=== PATIENT | male | born 1975 | race Caucasian/White ===

== ENCOUNTER → 2019-03-18 08:41 | Outpatient (BNVA) | payer BC, SELFPAY | PROVIDERS: Family Provider Nurse Practitioner; PCP Nurse Practitioner; Visit Provider Nurse Practitioner Family | DX: E87.6 Hypokalemia (principal) | CPT/HCPCS: 36415; 80048 ==

== ENCOUNTER → 2019-03-31 09:21 | Outpatient (BNVA) | payer BC, SELFPAY | PROVIDERS: Family Provider Nurse Practitioner; PCP Nurse Practitioner; Visit Provider Nurse Practitioner Family | DX: E87.6 Hypokalemia (principal); R73.9 Hyperglycemia, unspecified | CPT/HCPCS: 83036; 84132 ==

== ENCOUNTER → 2019-05-10 10:01 | Outpatient (BNVA) | payer BC, SELFPAY | PROVIDERS: Family Provider Nurse Practitioner; PCP Nurse Practitioner; Visit Provider Nurse Practitioner Family | DX: I10 Essential (primary) hypertension (principal); E87.6 Hypokalemia; J06.9 Acute upper respiratory infection, unspecified | CPT/HCPCS: 80053 ==

== ENCOUNTER → 2019-08-19 08:33 | Outpatient (BNVA) | payer BC, SELFPAY | PROVIDERS: Family Provider Nurse Practitioner; PCP Nurse Practitioner; Visit Provider Nurse Practitioner Family | DX: I10 Essential (primary) hypertension (principal); E78.5 Hyperlipidemia, unspecified; E87.6 Hypokalemia; L65.9 Nonscarring hair loss, unspecified; F41.9 Anxiety disorder, unspecified | CPT/HCPCS: 80053; 80061; 81003; 84443; 85025 ==

== ENCOUNTER → 2019-11-15 09:32 | Outpatient (BNVA) | payer BC, SELFPAY | PROVIDERS: Family Provider Nurse Practitioner; PCP Nurse Practitioner; Visit Provider Nurse Practitioner Family | DX: I10 Essential (primary) hypertension (principal); E78.5 Hyperlipidemia, unspecified | CPT/HCPCS: 80053; 80061; 84443; 85025 ==

== ENCOUNTER → 2020-05-15 08:33 | Outpatient (BNVA) | payer OTHER, SELFPAY | PROVIDERS: Family Provider Nurse Practitioner; PCP Nurse Practitioner; Visit Provider Nurse Practitioner Family | DX: E78.5 Hyperlipidemia, unspecified (principal); I10 Essential (primary) hypertension; F41.9 Anxiety disorder, unspecified; L65.9 Nonscarring hair loss, unspecified; E87.6 Hypokalemia | CPT/HCPCS: 80053; 80061; 84443; 85025 ==

== ENCOUNTER → 2020-09-11 16:01 | Outpatient (BNVA) | payer OTHER, SELFPAY | PROVIDERS: Family Provider Nurse Practitioner; PCP Nurse Practitioner; Visit Provider Nurse Practitioner Family | DX: I10 Essential (primary) hypertension (principal) | CPT/HCPCS: 80053 ==

== ENCOUNTER → 2020-09-24 09:20 | Outpatient (BNVA) | payer OTHER, SELFPAY | PROVIDERS: Family Provider Nurse Practitioner; PCP Nurse Practitioner; Visit Provider Nurse Practitioner Family | DX: E87.6 Hypokalemia (principal) | CPT/HCPCS: 80048 ==

== ENCOUNTER → 2020-10-31 10:26 | Outpatient (BNVA) | payer OTHER, SELFPAY | PROVIDERS: Family Provider Nurse Practitioner; PCP Nurse Practitioner; Visit Provider Nurse Practitioner Family | DX: I10 Essential (primary) hypertension (principal); E78.5 Hyperlipidemia, unspecified; K21.9 Gastro-esophageal reflux disease without esophagitis; E87.6 Hypokalemia; L65.9 Nonscarring hair loss, unspecified; F41.9 Anxiety disorder, unspecified | CPT/HCPCS: 80053; 80061; 84443; 85025 ==

== ENCOUNTER → 2021-01-23 10:12 | Outpatient (BNVA) | payer OTHER, SELFPAY | PROVIDERS: Family Provider Nurse Practitioner; PCP Nurse Practitioner; Visit Provider Nurse Practitioner Family | DX: Z12.5 Encounter for screening for malignant neoplasm of prostate (principal); I10 Essential (primary) hypertension; E78.5 Hyperlipidemia, unspecified; L65.9 Nonscarring hair loss, unspecified; K21.9 Gastro-esophageal reflux disease without esophagitis; E87.6 Hypokalemia; F41.9 Anxiety disorder, unspecified; R73.9 Hyperglycemia, unspecified | CPT/HCPCS: 80053; 80061; 83036; 84443; 85025; G0103 ==

== ENCOUNTER → 2021-05-14 11:30 | Outpatient (BNVA) | payer OTHER, SELFPAY | PROVIDERS: Family Provider Nurse Practitioner; PCP Nurse Practitioner; Visit Provider Nurse Practitioner Family | DX: R73.9 Hyperglycemia, unspecified (principal); R42 Dizziness and giddiness; I10 Essential (primary) hypertension; F41.9 Anxiety disorder, unspecified; H65.193 Other acute nonsuppurative otitis media, bilateral | CPT/HCPCS: 80053; 80061; 81000; 83036; 84443 ==

== ENCOUNTER → 2021-08-26 11:54 | Outpatient (BNVA) | payer OTHER, SELFPAY | PROVIDERS: Family Provider Nurse Practitioner; PCP Nurse Practitioner; Visit Provider Nurse Practitioner Family | DX: I10 Essential (primary) hypertension (principal); E87.6 Hypokalemia; K21.9 Gastro-esophageal reflux disease without esophagitis; L65.9 Nonscarring hair loss, unspecified; F41.9 Anxiety disorder, unspecified; E78.5 Hyperlipidemia, unspecified; G47.10 Hypersomnia, unspecified | CPT/HCPCS: 80053; 80061; 84443; 85025 ==

== ENCOUNTER → 2021-09-09 08:58 | Outpatient (BNVA) | payer OTHER, SELFPAY | PROVIDERS: Family Provider Nurse Practitioner; PCP Nurse Practitioner; Visit Provider Nurse Practitioner Family | DX: E87.6 Hypokalemia (principal) | CPT/HCPCS: 80053 ==

== ENCOUNTER → 2022-03-11 10:39 | Outpatient (BNVA) | payer OTHER, SELFPAY | PROVIDERS: Family Provider Nurse Practitioner; PCP Nurse Practitioner; Visit Provider Nurse Practitioner Family | DX: I10 Essential (primary) hypertension (principal); F41.9 Anxiety disorder, unspecified; L65.9 Nonscarring hair loss, unspecified; E87.6 Hypokalemia; K21.9 Gastro-esophageal reflux disease without esophagitis; G89.29 Other chronic pain; M79.672 Pain in left foot; G47.10 Hypersomnia, unspecified; E78.5 Hyperlipidemia, unspecified | CPT/HCPCS: 73630; 80053; 80061; 84443; 85025 ==

== ENCOUNTER → 2022-07-21 08:40 | Outpatient (BNVA) | payer OTHER, SELFPAY | PROVIDERS: Family Provider Nurse Practitioner; PCP Nurse Practitioner; Visit Provider Nurse Practitioner Family | DX: R05.9 Cough, unspecified (principal) | CPT/HCPCS: 87426 ==

== ENCOUNTER → 2022-08-25 08:55 | Outpatient (BNVA) | payer OTHER, SELFPAY | PROVIDERS: Family Provider Nurse Practitioner; PCP Nurse Practitioner; Visit Provider Nurse Practitioner Family | DX: E87.6 Hypokalemia (principal); K21.9 Gastro-esophageal reflux disease without esophagitis; I10 Essential (primary) hypertension; F41.9 Anxiety disorder, unspecified; L65.9 Nonscarring hair loss, unspecified; Z12.5 Encounter for screening for malignant neoplasm of prostate; E78.5 Hyperlipidemia, unspecified; L73.9 Follicular disorder, unspecified; B37.2 Candidiasis of skin and nail | CPT/HCPCS: 80053; 80061; 84443; 85025; G0103 ==

== ENCOUNTER → 2023-02-16 08:41 | Outpatient (BNVA) | payer OTHER, SELFPAY | PROVIDERS: Family Provider Nurse Practitioner; PCP Nurse Practitioner; Visit Provider Nurse Practitioner Family | DX: I10 Essential (primary) hypertension (principal) | CPT/HCPCS: 80053; 80061; 84443; 85025 ==

== ENCOUNTER → 2023-08-11 08:52 | Outpatient (BNVA) | payer OTHER, SELFPAY | PROVIDERS: Family Provider Nurse Practitioner; PCP Nurse Practitioner; Visit Provider Nurse Practitioner Family | DX: I10 Essential (primary) hypertension (principal); E78.5 Hyperlipidemia, unspecified | CPT/HCPCS: 80053; 80061; 83036; 84443; 85025 ==

== ENCOUNTER → 2024-01-28 08:41 | Outpatient (BNVA) | payer OTHER, SELFPAY | PROVIDERS: Family Provider Nurse Practitioner; PCP Nurse Practitioner Family; Visit Provider Nurse Practitioner Family | DX: Z12.5 Encounter for screening for malignant neoplasm of prostate (principal); I10 Essential (primary) hypertension; E78.5 Hyperlipidemia, unspecified | CPT/HCPCS: 80053; 80061; 84443; 85025; G0103 ==

== ENCOUNTER → 2025-01-11 13:37 | Outpatient (BNVA) | payer OTHER, SELFPAY | PROVIDERS: Family Provider Nurse Practitioner; PCP Nurse Practitioner Family; Visit Provider Nurse Practitioner Family | DX: I10 Essential (primary) hypertension (principal); E78.5 Hyperlipidemia, unspecified; F41.9 Anxiety disorder, unspecified; E87.6 Hypokalemia; G25.81 Restless legs syndrome; L65.9 Nonscarring hair loss, unspecified; Z12.5 Encounter for screening for malignant neoplasm of prostate | CPT/HCPCS: 80053; 80061; 82306; 82607; 83036; 84443; 85025; G0103 ==

== ENCOUNTER → 2025-02-03 10:06 | Outpatient (BNVA) | payer OTHER, SELFPAY | PROVIDERS: Family Provider Nurse Practitioner; PCP Nurse Practitioner Family; Visit Provider Nurse Practitioner Family | DX: E87.6 Hypokalemia (principal) | CPT/HCPCS: 80053 ==

== ENCOUNTER 2025-02-17 18:35 | Emergency (ER) | payer OTHER, SELFPAY ==
--- OUTSIDE RECORDS SUMMARY | 2025-02-17 18:48 | XMS_ITS | Clinical Summary ---
Author Organization [facility] Address [address] [facility] [address] [place] [address] Care Team Providers Care Ski Edge Painter Name Role Phone Augustine Hollingsworth MD Primary Care Provider [phone] Allergies Active Allergy Reactions Criticality Noted Date Comments Atorvastatin Muscle Pain Low 07/03/2016 Azithromycin Dizziness Low 07/03/2016 Medications famotidine (PEPCID) 20 mg tablet Take 20 mg by mouth 2 times daily. Active fluticasone (FLONASE) 50 mcg/spray [place], SuspensionIndicati ons:Seasonal allergic rhinitis due to other allergic trigger Administer 2 Sprays in each nostril daily. Active Fish Oil-[place]-3 Fatty Acids 360-1,200 mg CapsuleIndications :Mixed hyperlipidemia Take 1 Capsule by mouth 2 times daily. Active multivitamin,tx-ir on-ca-min (THERA-M) 27-0.4 mg Tablet Take 1 Tablet by mouth daily. Active albuterol HFA 90 mcg inhalerIndications :Mild intermittent asthma without complication Take 2 Puffs by inhalation every 6 hours as needed for Shortness of Breath. 8.5 Gram 2 7 Active lisinopril (PRINIVIL) 40 mg tabletIndications: Benign hypertension TAKE ONE TABLET BY MOUTH ONCE DAILY *LAST REFILL TILL APPT* 30 Tablet 8 Active chlorthalidone (HYGROTON) 50 mg tablet TAKE ONE TABLET BY MOUTH ONCE DAILY 30 Tablet 8 Active lisinopril (PRINIVIL) 40 mg tabletIndications: Benign hypertension TAKE ONE TABLET BY MOUTH ONCE DAILY *LAST REFILL TILL APPT* 30 Tablet 8 Active Active Problems Problem Noted Date Diagnosed Date Hyperglycemia 08/21/2016 Asthma 07/03/2016 Benign hypertension 07/03/2016 Seasonal allergic rhinitis 07/03/2016 Hyperlipidemia 07/03/2016 Severe obesity (BMI 35.0-39.9) with comorbidity 07/03/2016 Family History Medical History Relation Name Comments Heart Disease Father Hypertension Father Hypertension Mother Relation Name Status Comments Father Mother Alive Social History Tobacco Use Types Packs/Day Years Used Date Smoking Tobacco: Never Smokeless Tobacco: Never Alcohol Use Standard Drinks/Week Comments No 0 (1 standard drink = 0.6 oz pur e alcohol) Sex and Gender Information Value Date Recorded Sex Assigned at Not on file 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 Gender Identity Not on file Sexual Orientation Not on file Last Filed Vital Signs Vital Sign Reading Time Taken Comments Blood Pressure 140/82 08/21/2016 11:11 AM CDT Pulse 73 08/21/2016 11:11 AM CDT Temperature 36.8 C (98.2 F) 08/21/2016 11:11 AM CDT Respiratory Rate 16 08/21/2016 11:11 AM CDT Oxygen Saturation 97% 08/21/2016 11:11 AM CDT Inhaled Oxygen Concentration - - Weight 116.1 kg (256 lb) 08/21/2016 11:11 AM CDT Height 175.3 cm (5' 9 ) 08/21/2016 11:11 AM CDT Body Mass Index 37.8 08/21/2016 11:11 AM CDT Plan of Treatment Health Maintenance Due Date Last Done Comments DTAP/TDAP/TD VACCINES (1 - Tdap) 1992 HEPATITIS B VACCINES (1 of 3 - 19+ 3-dose series) 11/1992 COLORECTAL SCREENING 2018 Colorectal Cancer Screening 2018 FIT-DNA Q 3 years 2018 FIT/FOBT Q 1 year 2018 Flex Sig/CT Colonography Q 5 years 2018 ZOSTER VACCINE (1 of 2) 06/23/2023 INFLUENZA VACCINE (#1) 2024 Care Teams Ski Edge Painter Relationship Specialty Start Date End Date Augustine Hollingsworth MD [address] [phone] PCP - General Family Practice 01/08/17
--- OUTSIDE RECORDS SUMMARY | 2025-02-17 18:48 | XMS_ITS | Encounter Summary ---
Author Organization [facility] Address [address] [place] [address] Care Team Providers Care Boat Outfitting Supervisor Name Role Phone Augustine Hollingsworth MD Primary Care Provider [phone] [phone] Encounter Details Date Type Department Care Team (Late st Contact Info) Description 07/10/[address] [facility] 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 Gender Identity Not on file Sexual Orientation Not on file documented as of this encounter Plan of Treatment Not on file documented as of this encounter Procedures Procedure Name Priority Date/Time Associated Diagnosis Comments LIPID PANEL Routine 07/10/2004 12:12 PM CDT documented in this encounter Results * (ABNORMAL) LIPID PANEL (07/10/2004 12:12 PM CDT) CHOLESTEROL 239(H) 75 - 200 mg/dL INTERFACE SYSTEM TRIGLYCERIDE 143 0 - 168 mg/dL INTERFACE SYSTEM GLUCOSE 98 70 - 110 mg/dL INTERFACE SYSTEM CALCULATED TOTAL CHOLESTEROL TO HDL RATIO 4.51 3.43 - 4.97 INTERFACE SYSTEM HDL 53 40 - 60 mg/dL INTERFACE SYSTEM LDL CALCULATED 157(H) 0 - 130 mg/dL INTERFACE SYSTEM 07/10/2004 12:1 2 PM CDT us Perez Guillory MD CHEMISTRY ORDERABLES Final Res ult INTERFACE SYSTEM Refer to clinic/hospital department documented in this encounter Visit Diagnoses Not on filedocumented in this encounter Care Teams Boat Outfitting Supervisor Relationship Specialty Start Date End Date Augustine Hollingsworth MD [address] [facility] [address] [place] [address] PCP - General Family Practice 01/08/17 documented as of this encounter
--- OUTSIDE RECORDS SUMMARY | 2025-02-17 18:48 | XMS_ITS | Clinical Summary ---
Author Organization [facility] Address [address] Fleix: Epic Prelude ADT [place]EVIN BENÍTEZ [address] Care Team Providers Care Electrical And Radio Mock Up Mechanic Name Role Phone Augustine Hollingsworth MD Primary Care Provider [phone] [phone] Allergies Active Allergy Reactions Criticality Noted Date Comments Atorvastatin Muscle Pain Low 07/03/2016 Azithromycin Dizziness Low 07/03/2016 Medications lisinopriL (PRINIVIL) 40 mg tabletIndications: Benign hypertension TAKE ONE TABLET BY MOUTH ONCE DAILY *LAST REFILL TILL APPT* 30 Tablet 0 8 Active chlorthalidone (HYGROTON) 50 mg tablet TAKE ONE TABLET BY MOUTH ONCE DAILY 30 Tablet 0 8 Active lisinopriL (PRINIVIL) 40 mg tabletIndications: Benign hypertension TAKE ONE TABLET BY MOUTH ONCE DAILY *LAST REFILL TILL APPT* 30 Tablet 0 8 Active albuterol sulfate 90 mcg/Actuation inhalerIndications :Mild intermittent asthma without complication Take 2 Puffs by inhalation every 6 hours as needed for Shortness of Breath. 8.5 Gram 2 7 Active fluticasone propionate (FLONASE) 50 mcg/spray [place], Suspension nasal inhalerIndications :Seasonal allergic rhinitis due to other allergic trigger Administer 2 Sprays in each nostril daily. 7 Active Fish Oil-[place]-3 Fatty Acids 360-1,200 mg CapsuleIndications :Mixed hyperlipidemia Take 1 Capsule by mouth 2 times daily. 7 Active famotidine (PEPCID) 20 mg tablet Take 20 mg by mouth 2 times daily. 7 Active multivitamin,tx-ir on-ca-min (THERA-M) 27-0.4 mg Tablet Take 1 Tablet by mouth daily. 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 Gender Identity Not on file Sexual Orientation Not on file Last Filed Vital Signs Vital Sign Reading Time Taken Comments Blood Pressure 140/82 08/21/2016 11:11 AM CDT Pulse 73 08/21/2016 11:11 AM CDT Temperature 36.8 C (98.2 F) 08/21/2016 11:11 AM CDT Respiratory Rate 16 08/21/2016 11:11 AM CDT Oxygen Saturation - - Inhaled Oxygen Concentration - - Weight 116.1 [...] 06/23/2023 INFLUENZA VACCINE (#1) 2024 Care Teams Electrical And Radio Mock Up Mechanic Relationship Specialty Start Date End Date Augustine Hollingsworth MD [address] [phone] PCP - General Family Practice 01/08/17
--- OUTSIDE RECORDS SUMMARY | 2025-02-17 18:48 | XMS_ITS | Encounter Summary ---
Author Organization [facility] Address [address] [place] [address] Care Team Providers Care Quality Assurance Inspector Name Role Phone Augusitne Hollingsworth MD Primary Care Provider [phone] [phone] Encounter Details Date Type Department Care Team (Late st Contact Info) Description 11/08/2003 Outpatient Historical [facility] General Surgery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
[2025-02-17 18:49] VITALS: BP 183/108; PULSE 74; RESP 14; TEMP 36.7; O2SAT 99; BMI 41.7
--- NOTE | 2025-02-17 19:18 | CTR_ITS ---
PROCEDURE INFORMATION: Exam: CT Head Without Contrast Exam date and time: 02/17/2025 7:49 PM Age: 49 years old Clinical indication: Intermittent dizziness with hypertension x 1 week. ; Additional info: Dizzy HTN TECHNIQUE: Imaging protocol: Computed tomography of the head without contrast. Radiation optimization: All CT scans at this facility use at least one of these dose optimization techniques: automated exposure control; mA and/or kV adjustment per patient size (includes targeted exams where dose is matched to clinical indication); or iterative reconstruction. COMPARISON: No relevant prior studies available. RADIATION DOSE METRICS: Total DLP (mGy-cm): 1093.08 FINDINGS: Brain: No focal hemorrhage or midline shift is identified. Mild atrophy. Cerebral ventricles: No ventriculomegaly or evidence of acute hydrocephalus. Paranasal sinuses: Partially imaged right maxillary sinus disease. Mastoid air cells: Visualized mastoid air cells are well aerated. Bones: Unremarkable. No acute fracture. Soft tissues: Unremarkable. CT/CT head wo con* [id number] IMPRESSION: No acute intracranial abnormality.
--- NOTE | 2025-02-17 19:30 | ECG_ITS ---
[facility]ost Test Date: 2025-02-17 Pat Name: Castro Brandon Department: Room: Gender: Male Java Software Architect: : 1975 Requested By: Mookie Noel Order Number: [id number] Niraj MD: EVELYN WELLER Measurements Intervals [place] Rate: 73 P: 9 WY: 166 QRS: 16 QRSD: 158 T: 18 QT: 415 QTc: 459 Interpretive Statements SINUS RHYTHM RIGHT BUNDLE BRANCH BLOCK [120+ ms QRS DURATION, UPRIGHT V1, 40+ ms S IN I/aVL/V4/V5/V6] WARNING: DATA QUALITY MAY AFFECT INTERPRETATION No previous ECG available for comparison Electronically Signed On 02-18-2025 18:39:28 CONTROL ROOM TENDER by EVELYN WELLER [email or web address]
[2025-02-17 19:39] VITALS: BP 159/100; PULSE 73; RESP 18; O2SAT 99
[2025-02-17 19:52] LABS: Hematocrit 46.2 % (37-53); Hemoglobin 16.30 g/dL (11.27-16.99); Mean Corpuscular HGB Conc 35.3 g/dL (30-55); Mean Corpuscular Hemoglobin 28.7 pg (27-33); Mean Corpuscular Volume 81.5 fl (82-101); Nucleated Red Blood Cells % 0 %; Platelet Count 253 10^3/cmm (157-399); Red Blood Count 5.67 10^6/uL (3.85-5.65); White Blood Count 7.79 10^3/uL (3.29-11.43)
[2025-02-17 20:00] VITALS: BP 172/96; PULSE 70; RESP 18; O2SAT 94
[2025-02-17 20:05] LABS: INR 0.93 (0.8-1.2); Partial Thromboplastin Time 26.7 SECONDS (23.9-36.7); Prothrombin Time 13.20 SECONDS (12.1-14.9)
[2025-02-17 20:10] LABS: Alanine Aminotransferase 85 U/L (0-41); Albumin Level 4.6 g/dL (3.5-5.2); Alkaline Phosphatase 95 U/L (40-130); Anion Gap 14.1 (5-19); Aspartate Amino Transferase 34 U/L (0-40); Blood Urea Nitrogen 8 mg/dL (6-20); Calcium 9.4 mg/dL (8.5-10.5); Carbon Dioxide 27 mmol/L (22-29); Chloride 104 mmol/L (98-107); Globulin 3.0 g/dL (1.3-4.6); Glucose 119 mg/dL (65-115); Magnesium 2.4 mg/dL (1.7-2.3); Osmolality Calculated 291 mOsm/kg (285-295); Potassium 4.1 mmol/L (3.5-5.1); Sodium 141 mmol/L (136-145); Total Protein 7.6 g/dL (6.6-8.7)
[2025-02-17] MEDS: metoprolol tartrate 1 mg/1 mL SDV 5 mL 5 MG IVP (20:15)
[2025-02-17 20:31] VITALS: BP 172/100; PULSE 68; RESP 16; O2SAT 96
[2025-02-17 20:35] LABS: Glucose Urine UA Negative (Normal); Nitrate Urine Negative (Negative); Specific Gravity, Urine 1.007 (1.005-1.030)
[2025-02-17 20:37] LABS: Add Urine Microscopic? YES
[2025-02-17 21:00] VITALS: BP 149/94; PULSE 71; RESP 18; O2SAT 99
--- NOTE | 2025-02-17 21:00 | ED_ITS ---
HPI - Recheck/Abnormal Lab/Rx 2 General: Chief Complaint: Recheck/Abnormal Lab/Rx Stated Complaint: urgent care sent dizzy High BP Time Seen by Provider: 02/17/25 18:53 History of Present Illness: 49-year-old male patient with a history of hypertension. No history of heart disease. He presents with dizziness on and off for the last week or so. He notes that his blood pressure has crept up over this period of time as well. He was seen in urgent care this afternoon, and encouraged to come to the emergency department given his dizziness and hypertension. He denies any chest pain or shortness of breath. He denies vision changes, dexterity or balance problems, weakness, numbness or tingling. He says that he takes amlodipine and lisinopril. Related Data Home Medications ?Medication ?Instructions ?Recorded ?Confirmed multivitamin 1 cap PO DAILY 05/10/1908/07 omega-3 fatty acids [Fish Oil] PO DAILY 05/10/1902/17 Previous Rx's ?Medication ?Instructions ?Recorded furosemide 40 mg tablet 40 mg PO QAM #30 tabs potassium chloride 20 mEq 20 meq PO BID 30 days #60 ta bs 01/20/24 tablet,extended release(part/cryst) albuterol sulfate 90 mcg/actuation 2 puff inhalation Q ID PRN 01/11/25 aerosol inhaler shortness of breath or wheez ing #6.7 grams amlodipine 10 mg tablet 10 mg PO DAILY 30 days #30 t abs 01/11/25 escitalopram oxalate 20 mg tablet 20 mg PO DAILY #30 t abs 01/11/25 ezetimibe 10 mg tablet 10 mg PO DAILY #30 tabs 12/15 12/08 finasteride 1 mg tablet 1 mg PO DAILY 30 days #30 ta bs 01/11/25 lisinopril 40 mg tablet 40 mg PO DAILY 30 days #30 t abs 01/11/25 pantoprazole 40 mg tablet,delayed 40 mg PO DAILY 30 da ys #30 tabs 01/11/25 release (Protonix) cholecalciferol (vitamin D3) 1,250 50,000 unit PO .onc e weekly #12 01/17/25 mcg (50,000 unit) capsule caps metoprolol tartrate 25 mg tablet 25 mg PO BID #60 tabs 02/17/25 Allergies Allergy/AdvReac Type Severity Reaction Status Date / Time atorvastatin (From Lipitor) Allergy ADR-Muscle Verified 02/17/25 18:08 Pain azithromycin Allergy ADR-Diarrhe Verified 02/17/25 18:08 a hydrochlorothiazide Allergy ADR-Muscle Verified 02/17/25 18:08 Pain PFSH ED 2 PFSH: Medical History (Updated 02/17/25 @ 21:04 by Mookie Ashford DO) Gastroesophageal reflux disease Restless leg Anxiety Balding Dyslipidemia Essential hypertension Surgical History No pertinent past surgical history Social History Smoking and tobacco/nicotine status: never used tobacco/nicotine Quit status (tobacco/nicotine): has quit using Alcohol intake: never Substance/Drug Use: never Lives independently: Yes Household members: spouse Housing: House Marital status: Physical Exam 2 Const: COMMON NORMALS: no acute distress GENERAL APPEARANCE: cooperative; not ill appearing and not frail appearing HENMT: COMMON NORMALS: normocephalic, atraumatic and Normal external nose present HEAD & SCALP: normocephalic and atraumatic FACE & SINUS: normal facial exam and face symmetric NOSE: Normal external nose present Eye: COMMON NORMALS: Equal, round and reactive pupils present and EOMs intact bilaterally PUPIL: Yes Equal, round and reactive pupils present Neck/C-Spine: GENERAL: Yes trachea midline Chest: CHEST: Yes Symmetrical chest wall rise Resp: COMMON NORMALS: normal respiratory effort, No retractions, No use of accessory muscles and clear to auscultation bilaterally AUSCULTATION: clear to auscultation bilaterally Cardio: COMMON NORMALS: regular rate and regular rhythm RATE: regular rate RHYTHM: regular rhythm GI: COMMON NORMALS: Normal to inspection, nondistended, normoactive bowel sounds present Extremity: COMMON NORMALS: no pedal edema Neuro: KATIE COMA SCALE: document GCS findings Union coma scale eye opening: Spontaneous Union coma scale verbal response: Orientated Katie coma scale motor response: Obey commands Union coma scale total score: 15 S ENSORY EXAM: Yes extremities (intact) Psych: COMMON NORMALS: speech normal SPEECH: Yes normal speech Skin: NARRATIVE SKIN EXAM: Pressure ulcerations to the middle distal third junction of the posterior leg. No significant cellulitis. No drainage. Course 2 Vital Signs: Vital signs: Vital Signs Temperature 98.1 F 02/17/25 18:49 Pulse Rate 71 02/17/25 21:00 Respiratory Rate 18 02/17/25 21:00 Blood Pressure 149/94 02/17/25 21:00 Pulse Oximetry 99 02/17/25 21:00 Oxygen Delivery Me thod Room Air 02/17/25 21:00 MDM - Recheck/Abnormal Lab/Rx Medical Decision Making Blood pressure is much improved. Currently 145/95. Heart rate is 70. This is after IV metoprolol and IV Vasotec. The patient is on amlodipine 10 and lisinopril 40. Will add metoprolol for better control. He is going to check his pressures twice daily and report to his doctor. CBC is normal. BMP is essentially normal. Urinalysis is negative. Head CT is negative for any abnormality. He is stable for discharge. He will return for any worsening symptoms Lab Data 02/17/25 19:33 02/17/25 19:[address] 02/17/25 19:18 IMPRESSION: No acute intracranial abnormality. Laboratory Results WBC 7.79 10^3/uL (3.29-11.43) 02/17/25 19:33 RBC 5.67 10^6/uL (3.85-5.65) H 02/17/25 19:33 Hgb 16.30 g/dL (11.27-16.99) 02/17/25 19:33 Hct 46.2 % (37-53) 02/17/25 19:33 MCV 81.5 fl (82-101) L 02/17/25 19:33 MCH 28.7 pg (27-33) 02/17/25 19:33 MCHC 35.3 g/dL (30-55) 02/17/25 19:33 RDW 12.6 % (12.1-15.1) 02/17/25 19:33 Plt Count 253 10^3/cmm (157-399) 02/17/25 19:33 MPV 9.9 fL (7.4-10.4) 02/17/25 19:33 Neut % (Auto) 63.3 % 02/17/25 19:33 Lymph % (Auto) 26.2 % 02/17/25 19:33 [place] % (Auto) 6.3 % 02/17/25 19:33 Eos % (Auto) 3.1 % 02/17/25 19:33 Baso % (Auto) 0.6 % 02/17/25 19:33 Neut # (Auto) 4.93 10^3/uL (1.8-7.7) 02/17/25 19:33 Lymph # (Auto) 2.0 10^3/uL (0.8-4.8) 02/17/25 19:33 [place] # (Auto) 0.5 10^3/uL (0.2-0.9) 02/17/25 19:33 Eos # (Auto) 0.2 10^3/uL (0.0-0.8) 02/17/25 19:33 Baso # (Auto) 0.1 10^3/uL (0.0-0.1) 02/17/25 19:33 Nucleated RBC % (auto) 0 % 02/17/25 19:33 Nucleated RBCs # 0.0 /100WBC 02/17/25 19:33 PT 13.20 SECONDS (12.1-14.9) 02/17/25 19:33 INR 0.93 (0.8-1.2) 02/17/25 19:33 APTT 26.7 SECONDS (23.9-36.7) 02/17/25 19:33 Sodium 141 mmol/L (136-145) 02/17/25 19:33 Potassium 4.1 mmol/L (3.5-5.1) 02/17/25 19:33 Chloride 104 mmol/L (98-107) 02/17/25 19:33 Carbon Dioxide 27 mmol/L (22-29) 02/17/25 19:33 Anion Gap 14.1 (5-19) 02/17/25 19:33 BUN 8 mg/dL (6-20) 02/17/25 19:33 Creatinine 0.8 mg/dL (0.7-1.2) 02/17/25 19:33 GFR Calculation 101.9 mL/min (90-130) 02/17/25 19:33 Glucose 119 mg/dL (65-115) H 02/17/25 19:33 Calculated Osmolality 291 mOsm/kg (285-295) 02/17/25 19:33 Calcium 9.4 mg/dL (8.5-10.5) 02/17/25 19:33 Magnesium 2.4 mg/dL (1.7-2.3) H 02/17/25 19:33 Total Bilirubin 0.5 mg/dL (0.15-1.2) 02/17/25 19:33 AST 34 U/L (0-40) 02/17/25 19:33 ALT 85 U/L (0-41) H 02/17/25 19:33 Alkaline Phosphatase 95 U/L (40-130) 02/17/25 19:33 Total Protein 7.6 g/dL (6.6-8.7) 02/17/25 19:33 Albumin 4.6 g/dL (3.5-5.2) 02/17/25 19:33 Globulin 3.0 g/dL (1.3-4.6) 02/17/25 19:33 Urine Color Yellow (Yellow) 02/17/25 20:18 Urine Appearance Clear (CLEAR) 02/17/25 20:18 Urine pH 7.0 (5-7) 02/17/25 20:18 Ur Specific [place] 1.007 (1.005-1.030) 02/17/25 20:18 Urine Protein Negative (Negative) 02/17/25 20:18 Urine Glucose (UA) Negative (Normal) 02/17/25 20:18 Urine Ketones Negative (Negative) 02/17/25 20:18 Urine Blood Negative (Negative) 02/17/25 20:18 Urine Nitrate Negative (Negative) 02/17/25 20:18 Urine Bilirubin Negative (Negative) 02/17/25 20:18 Urine Urobilinogen 0.2 mg/dL (Negative) 02/17/25 20:18 Ur Leukocyte Esterase Negative (Negative) 02/17/25 20:18 Urine RBC 0-2 /hpf (0-2) 02/17/25 20:18 Urine WBC 0-5 /hpf (0-5) 02/17/25 20:18 Ur Squamous Epith Cells 0-5 /hpf (0-5) 02/17/25 20:18 Amorphous Sediment Not Reportable 02/17/25 20:18 Urine Bacteria None seen /hpf (NONE) 02/17/25 20:18 Hyaline Casts 2.05 /lpf 02/17/25 20:18 All radiology interpretation(s) finalized by discharge EKG Data EKG 1: Computer generated interpretation: EKG time 1929, read 1932. Sinus rhythm, rate 75, normal axis, right bundle branch block. QRS duration is 158, CT is 166, QTc 441. No acute ST wave changes. Discharge Plan Discharge Patient Disposition: Home Clinical Impression: Hypertensive urgency Condition: Stable Prescriptions: New metoprolol tartrate 25 mg tablet 25 mg PO BID Qty: 60 0RF No Action omega-3 fatty acids PO DAILY multivitamin Capsule 1 cap PO DAILY escitalopram oxalate 20 mg tablet 20 mg PO DAILY Qty: 30 1RF amlodipine 10 mg tablet 10 mg PO DAILY 30 Days Qty: 30 5RF lisinopril 40 mg tablet 40 mg PO DAILY 30 Days Qty: 30 5RF pantoprazole [Protonix] 40 mg tablet,delayed release (DR/EC) 40 mg PO DAILY 30 Days Qty: 30 5RF finasteride 1 mg tablet 1 mg PO DAILY 30 Days Qty: 30 5RF ezetimibe 10 mg tablet 10 mg PO DAILY Qty: 30 5RF albuterol sulfate 90 mcg/actuation HFA aerosol inhaler 2 puff inhalation QID PRN (Reason: shortness of breath or wheezing) Qty: 6.7 5RF potassium chloride 20 mEq tablet,ER particles/crystals 20 meq PO BID 30 Days Qty: 60 5RF furosemide 40 mg tablet 40 mg PO QAM Qty: 30 5RF cholecalciferol (vitamin D3) 1,250 mcg (50,000 unit) capsule 50,000 unit PO .once weekly Qty: 12 0RF Discharge Orders: Discharge ED (Routine); Ordered 02/17/25 Ordered By: Mookie Ashford Referrals: Yesenia Cam FNP-C [Primary Care Provider, Family Practice] - 4-7 days Patient Instructions: Hypertension (ED), Opioid Safety, Pain Management, Patient Portal & Carrie Instructions Activity Restrictions/Additional Instructions: Medication as directed. After you start your new medication, take your blood pressure twice daily, report numbers to your doctor. Call Thursday for a follow- up appointment next week. Return for worsening headache, dizziness, speech or vision changes, chest discomfort, any other concerning symptoms. Print Language: Swedish Coding Level of Care Code ED Curtain Drier for Carlosg Stiven
== END 2025-02-17 21:20 | disposition home or self-care (01) ==
PROVIDERS: Emergency Provider Emergency Medicine; PCP Nurse Practitioner Family
DX: I16.0 Hypertensive urgency (principal); Z87.891 Personal history of nicotine dependence; E78.5 Hyperlipidemia, unspecified; I10 Essential (primary) hypertension
CPT/HCPCS: 36415; 70450; 80053; 81001; 83735; 85025; 85610; 85730; 93005; 96374; 96375; 99285; J3490; J9999